=== PATIENT | female | born 1960 | race Caucasian/White ===

== ENCOUNTER → 2017-01-18 | Outpatient (CLI) | payer BC ==
--- NOTE | 2017-01-18 13:53 | BD ---
EXAMINATION TYPE: MG DEXA axial skeleton. DATE OF EXAM: 01/18/2017 CLINICAL HISTORY: Osteopenia. Follow-up exam. COMPARISON: 12/11/2013 Height: 54.5 Weight: 152 FRAX RISK QUESTIONS: Alcohol (3 or more units per day): no Family History (Parent hip fracture): yes, father Glucocorticoids (More than 3mos): no (Ex: prednisone, prednisolone, methylprednisolone, dexamethasone, and hydrocortisone). History of Fracture in Adulthood: yes, about 4 years ago area where wrist joins thumb; & finger at an other time Secondary Osteoporosis: 1. Type 1 Diabetes: no 2. Hyperthyroidism: no 3. Menopause before 45: no 4. Malnutrition: no 5. Chronic liver disease: no Rheumatoid Arthritis: no Current Tobacco Use: no RISK FACTORS HISTORY OF: Hip Fracture (Right/Left): no Spine Fracture: no History of Wrist Fracture: no Surgery to Spine/Hip(right/left)/Wrist (right/left): no Family History of Osteoporosis: yes, sister Active: no Diet low in dairy products/other sources of calcium: no Postmenopausal woman: yes Take estrogen and/or progesterone medications: no Lost more than 2 inches in height since high school: no Frequent falls: no Poor Health: no Hyperparathyroidism: no Adrenal Insufficiency: no MEDICATIONS: Prednisone or other steroids: no Thyroid Medications: no Osteoporosis Medications: no Additional Medications: n/a Additional History: osteoarthritis knees EXAM MEASUREMENTS: Bone mineral densitometry was performed using the [employer]ablo System. Bone mineral density as measured about the Lumbar spine is: ----- L1-L4(G/cm2): 1.227 T Score Values are as follows: ----- L2: 0.7 ----- L3: 0.7 ----- L4: 0.3 ----- L1-L4: 0.4 Bone mineral density has: Increased 1.0% since study of: 12/11/2013 Bone mineral density about the R hip (g/cm2): 0.809 Bone mineral density about the L hip (g/cm2): 0.887 T Score values are as follows: -----R Neck: -1.6 -----L Neck: -1.1 -----R Total: -1.3 -----L Total: -0.7 Bone mineral density has: Decreased -3.4% since study of: 12/11/2013 IMPRESSION: Osteopenia (T Score between -2.5 and -1 as noted by T score values) both hips. There is slightly increased risk of fracture and the patient may be considered for treatment. Re-Screen 2-5 years. NOTE: T-SCORE=SD OF THE YOUNG ADULT MEAN.
--- NOTE | 2017-01-22 10:43 | MM ---
Reason for exam: screening (asymptomatic). Last mammogram was performed 1 year and 2 months ago. History: Patient is postmenopausal. Family history of premenopausal breast cancer in sister at age 33, premenopausal breast cancer in mother at age 48, and breast cancer in relative. Physical Findings: A clinical breast exam by your physician is recommended on an annual basis and results should be correlated with mammographic findings. MG Screening Mammo w CAD Bilateral CC and MLO view(s) were taken. Prior study comparison: November 30, 2015, bilateral MG screening mammo w CAD. November 06, 2014, bilateral MG screening mammo w CAD. The breast tissue is heterogeneously dense. This may lower the sensitivity of mammography. No significant changes when compared with prior studies. ASSESSMENT: Benign, BI-RAD 2 RECOMMENDATION: Routine screening mammogram of both breasts in 1 year.
== END | disposition home or self-care (01) ==
LOC: RADMAMWWP 10:27
PROVIDERS: ATTEND Obstetrics & Gynecology
DX: Z12.31 Encounter for screening mammogram for malignant neoplasm of breast (principal); M85.851 Other specified disorders of bone density and structure, right thigh; M85.852 Other specified disorders of bone density and structure, left thigh
CPT/HCPCS: 77080; G0202

== ENCOUNTER → 2018-03-27 | Outpatient (CLI) | payer BC ==
--- NOTE | 2018-03-27 14:41 | MM ---
Reason for exam: screening (asymptomatic). Last mammogram was performed 1 year and 2 months ago. History: Patient is postmenopausal. Family history of premenopausal breast cancer in sister at age 33, premenopausal breast cancer in mother at age 48, and breast cancer in relative. Physical Findings: A clinical breast exam by your physician is recommended on an annual basis and results should be correlated with mammographic findings. MG 3D Screening Mammo W/Cad Bilateral CC and MLO view(s) were taken. Prior study comparison: January 18, 2017, bilateral MG screening mammo w CAD. November 30, 2015, bilateral MG screening mammo w CAD. The breast tissue is heterogeneously dense. This may lower the sensitivity of mammography. No suspicious abnormality in the right breast. Focal asymmetry left upper outer quadrant middle posterior depth. ASSESSMENT: Incomplete: need additional imaging evaluation, BI-RAD 0 RECOMMENDATION: Special view mammogram of the left breast. If lesion persists on supplemental views, image directed ultrasound is recommended. [facility] will attempt to contact patient to return for supplemental views and ultrasound if indicated.
== END | disposition home or self-care (01) ==
LOC: RADMAMWWP 11:33
PROVIDERS: ATTEND Obstetrics & Gynecology
DX: Z12.31 Encounter for screening mammogram for malignant neoplasm of breast (principal); Z80.3 Family history of malignant neoplasm of breast
CPT/HCPCS: 77063; 77067

== ENCOUNTER → 2018-03-29 | Outpatient (CLI) | payer BC ==
--- NOTE | 2018-04-01 07:58 | MM ---
Reason for exam: additional evaluation requested from abnormal screening. Last mammogram was performed less than 1 month ago. History: Patient is postmenopausal. Family history of premenopausal breast cancer in sister at age 33, premenopausal breast cancer in mother at age 48, and breast cancer in relative. Physical Findings: Nurse did not find any significant physical abnormalities on exam. MG 3D Work Up W/Cad LT Spot compression CC, spot compression MLO, and ML view(s) were taken of the left breast. Prior study comparison: March 27, 2018, bilateral MG 3d screening mammo w/cad. January 18, 2017, bilateral MG screening mammo w CAD. There are scattered fibroglandular densities. Focal asymmetry disperses on compression. This finding is changed when compared with previous exams. These results were verbally communicated with the patient and result sheet given to the patient on 03/29/18. ASSESSMENT: Probably benign, BI-RAD 3 RECOMMENDATION: Follow-up diagnostic mammogram of the left breast in 6 months. (with CC/MLO compression)
== END | disposition home or self-care (01) ==
LOC: RADMAMWWP 10:41
PROVIDERS: ATTEND Obstetrics & Gynecology
DX: R92.8 Other abnormal and inconclusive findings on diagnostic imaging of breast (principal)
CPT/HCPCS: 77061; 77065

== ENCOUNTER → 2018-09-30 | Outpatient (CLI) | payer BC ==
--- NOTE | 2018-09-30 10:05 | MM ---
Reason for exam: follow-up at short interval from prior study. Last mammogram was performed 6 months ago. History: Patient is postmenopausal. Family history of premenopausal breast cancer in sister at age 33, premenopausal breast cancer in mother at age 48, and breast cancer in relative. Physical Findings: Nurse did not find any significant physical abnormalities on exam. MG 3D Diag Mammo W/Cad LT CC and MLO view(s) were taken of the left breast. Prior study comparison: March 29, 2018, left breast MG 3d work up w/cad LT. March 27, 2018, bilateral MG 3d screening mammo w/cad. There are scattered fibroglandular densities. Questioned lateral asymmetric density does not persist. No significant new findings when compared with previous films. These results were verbally communicated with the patient and result sheet given to the patient on 09/30/18. ASSESSMENT: Negative, BI-RAD 1 RECOMMENDATION: Return to routine screening mammogram schedule for both breasts. Back on schedule.
== END | disposition home or self-care (01) ==
LOC: RADMAMWWP 08:23
PROVIDERS: ATTEND Obstetrics & Gynecology
DX: R92.8 Other abnormal and inconclusive findings on diagnostic imaging of breast (principal)
CPT/HCPCS: 77061; 77065

== ENCOUNTER → 2019-04-04 | Outpatient (CLI) | payer BC ==
--- NOTE | 2019-04-07 13:48 | MM ---
Reason for exam: screening (asymptomatic). Last mammogram was performed 6 months ago. History: Patient is postmenopausal. Family history of premenopausal breast cancer in sister at age 33, premenopausal breast cancer in mother at age 48, and breast cancer in relative. Physical Findings: A clinical breast exam by your physician is recommended on an annual basis and results should be correlated with mammographic findings. MG 3D Screening Mammo W/Cad Bilateral CC and MLO view(s) were taken. Prior study comparison: September 30, 2018, left breast MG 3d diag mammo w/cad LT. March 29, 2018, left breast MG 3d work up w/cad LT. There are scattered fibroglandular densities. Focal asymmetry left upper outer quadrant. This finding is changed when compared with previous exams. ASSESSMENT: Incomplete: need additional imaging evaluation, BI-RAD 0 RECOMMENDATION: Special view mammogram of the left breast. If lesion persists on supplemental views, image directed ultrasound is recommended. [facility] will attempt to contact patient to return for supplemental views and ultrasound if indicated.
== END | disposition home or self-care (01) ==
LOC: RADMAMWWP 07:19
PROVIDERS: ATTEND Obstetrics & Gynecology
DX: Z12.31 Encounter for screening mammogram for malignant neoplasm of breast (principal)
CPT/HCPCS: 77063; 77067

== ENCOUNTER → 2019-04-14 | Outpatient (CLI) | payer BC ==
--- NOTE | 2019-04-15 07:39 | MM ---
Reason for exam: additional evaluation requested from abnormal screening. Last mammogram was performed less than 1 month ago. History: Patient is postmenopausal. Family history of premenopausal breast cancer in sister at age 33, premenopausal breast cancer in mother at age 48, and breast cancer in relative. Physical Findings: Nurse did not find any significant physical abnormalities on exam. MG 3D Work Up W/Cad LT Spot compression CC, spot compression MLO, and LM view(s) were taken of the left breast. Prior study comparison: April 04, 2019, bilateral MG 3d screening mammo w/cad. September 30, 2018, left breast MG 3d diag mammo w/cad LT. The breast tissue is heterogeneously dense. This may lower the sensitivity of mammography. No significant new findings when compared with previous films. These results were verbally communicated with the patient and result sheet given to the patient on 04/14/19. ASSESSMENT: Probably benign, BI-RAD 3 RECOMMENDATION: Follow-up diagnostic mammogram of the left breast in 6 months.
== END | disposition home or self-care (01) ==
LOC: RADMAMWWP 14:52
PROVIDERS: ATTEND Obstetrics & Gynecology
DX: R92.8 Other abnormal and inconclusive findings on diagnostic imaging of breast (principal)
CPT/HCPCS: 77061; 77065

== ENCOUNTER → 2020-04-13 | Outpatient (CLI) | payer BC ==
--- NOTE | 2020-04-13 15:08 | MM ---
Reason for exam: additional evaluation requested from prior study. Last mammogram was performed 1 year ago. History: Patient is postmenopausal. Family history of premenopausal breast cancer in sister at age 33, premenopausal breast cancer in mother at age 48, and breast cancer in relative. Physical Findings: Nurse did not find any significant physical abnormalities on exam. MG 3D Diag Mammo W/Cad ELYSSA Bilateral CC and MLO view(s) were taken. Prior study comparison: April 14, 2019, left breast MG 3d work up w/cad LT. April 04, 2019, bilateral MG 3d screening mammo w/cad. The breast tissue is heterogeneously dense. This may lower the sensitivity of mammography. There is no discrete abnormality. These results were verbally communicated with the patient and result sheet given to the patient on 04/13/20. ASSESSMENT: Negative, BI-RAD 1 RECOMMENDATION: Routine screening mammogram of both breasts in 1 year.
== END | disposition home or self-care (01) ==
LOC: RADMAMWWP 14:10
PROVIDERS: ATTEND Obstetrics & Gynecology
DX: R92.8 Other abnormal and inconclusive findings on diagnostic imaging of breast (principal)
CPT/HCPCS: 77062; 77066

== ENCOUNTER → 2020-04-28 | Outpatient (CLI) | payer BC ==
--- NOTE | 2020-04-29 07:20 | US ---
Limited abdomen ultrasound HISTORY: R 19.00 Ultrasound performed at the level of the palpable abnormality in the epigastric region. Isoechoic to mildly echogenic focus is present measuring approximately 1.2 cm is present. IMPRESSION: Findings may represent a lipoma or fibroma. Follow-up clinically. Limited exam.
== END | disposition home or self-care (01) ==
LOC: RADUSWWP 16:06
PROVIDERS: ATTEND Family Medicine
DX: R22.2 Localized swelling, mass and lump, trunk (principal)
CPT/HCPCS: 76705

== ENCOUNTER → 2022-06-20 | Outpatient (CLI) | payer BC ==
--- NOTE | 2022-06-20 09:00 | MM ---
Reason for Exam: Screening (asymptomatic). Last mammogram was performed 2 year(s) and 3 month(s) ago. Patient History: Menarche at age 11. First Full-Term at age 22. Postmenopausal. Maternal uncle had breast cancer. Sister had breast cancer, age 33. Mother had breast cancer, age 48. Risk Values: Laura 5 year model risk: 6.6%. NCI Lifetime model risk: 28.1%. Prior Study Comparison: 01/18/2017 Bilateral Screening Mammogram, [facility]. 03/27/2018 Bilateral Screening Mammogram, [facility]. 03/29/2018 Left Diagnostic Mammogram, [facility]. 09/30/2018 Left Diagnostic Mammogram, [facility]. 04/04/2019 Bilateral Screening Mammogram, [facility]. 04/14/2019 Left Diagnostic Mammogram, [facility]. 04/13/2020 Bilateral Diagnostic Mammogram, [facility]. Tissue Density: There are scattered fibroglandular densities. Findings: Analyzed By CAD. There is no suspicious group of microcalcifications or new suspicious mass in either breast. Overall Assessment: Negative, BI-RAD 1 Management: Screening Mammogram of both breasts in 1 year. A clinical breast exam by your physician is recommended on an annual basis and results should be correlated with mammographic findings. [facility] will attempt to contact patient to return for supplemental views and ultrasound if indicated. Electronically signed and approved by: Ra Power DO
== END | disposition home or self-care (01) ==
LOC: RADMAMWWP 06:51
PROVIDERS: ATTEND Family Medicine
DX: Z12.31 Encounter for screening mammogram for malignant neoplasm of breast (principal); Z78.0 Asymptomatic menopausal state; Z80.3 Family history of malignant neoplasm of breast
CPT/HCPCS: 77063; 77067

== ENCOUNTER 2022-07-17 06:42 | Day surgery (SDC) | payer BC ==
[2022-07-12 14:19] VITALS: BMI 24.2
[2022-07-17] MEDS ORDERED: LIDOCAINE 1% (10MG/ML) FOR IV START INTRADERMA PRN (06:54)
[2022-07-17] MEDS ORDERED: LACTATED RINGERS 1,000 ML IV SCH (06:54)
[2022-07-17 07:15] VITALS: TEMP 97.7
--- NOTE | 2022-07-17 07:16 | P.GSHP ---
History of Present Illness H&P Date: 07/17/22 CHIEF COMPLAINT: Colon screen HISTORY OF PRESENT ILLNESS: The patient is a 62-year-old female who presents for colon screen. Lower endoscopy was offered for further evaluation and management. PAST MEDICAL HISTORY: Please see list. PAST SURGICAL HISTORY: Please see list. MEDICATIONS: Please see list. ALLERGIES: Please see list. SOCIAL HISTORY: No illicit drug use FAMILY HISTORY: No reports of Crohn disease or ulcerative colitis. REVIEW OF ORGAN SYSTEMS: CONSTITUTIONAL: No reports of fevers or chills. PHYSICAL EXAM: VITAL SIGNS: Stable GENERAL: Well-developed pleasant in no acute distress. HEENT: No scleral icterus. Extraocular movements grossly intact. Moist buccal mucosa. NECK: Supple without lymphadenopathy. CHEST: Unlabored respirations. Equal bilateral excursions. CARDIOVASCULAR: Regular rate and rhythm. Distal 2+ pulses. ABDOMEN: Soft, nontender, nondistended. MUSCULOSKELETAL: No clubbing, cyanosis, or edema. ASSESSMENT: 1. Colon screen. PLAN: 1. Recommend proceeding with a lower endoscopy Past Medical History Past Medical History: No Reported History History of Any Multi-Drug Resistant Organisms: None Reported Past Surgical History: Orthopedic Surgery, Tonsillectomy, Uterine Ablation Additional Past Surgical History / Comment(s): Bilateral knee arthroscopy, sinus surgery, D&C. COLONOSCOPY Past Anesthesia/Blood Transfusion Reactions: Postoperative Nausea & Vomiting (PONV) Smoking Status: Former smoker - Past Family History Mother Family Medical History: Cancer Additional Family Medical History / Comment(s): Brain Hemorrage. Father Family Medical History: Cancer Sister(s) Family Medical History: Cancer Medications and Allergies Home Medications Medication Instructions Recorded Confirmed Type No Known Home Medications 06/05/17 07/17/22 History Allergies Allergy/AdvReac Type Severity Reaction Status Date / Time No Known Allergies Allergy Verified 07/17/22 06:59
[2022-07-17] MEDS ORDERED: LACTATED RINGERS 1,000 ML IV ONE (07:24)
[2022-07-17] MEDS ORDERED: PROPOFOL 10 MG/ML 20 ML VIAL IV ONE (07:26)
[2022-07-17 07:57] VITALS: RESP 16
[2022-07-17 08:08] VITALS: BP 123/72; PULSE 60
--- NOTE | 2022-07-17 08:13 | P.PCN ---
Date of Procedure: 07/17/22 Description of Procedure: PREOPERATIVE DIAGNOSIS: Personal history of colon polyps Family history malignant colon polyps Colonoscopy screening POSTOPERATIVE DIAGNOSIS: Tubular adenoma sigmoid colon Sigmoid diverticulosis Internal hemorrhoids, grade 2 OPERATION: Colonoscopy to the ileocecal valve and appendiceal orifice, cecum Colonoscopy with cold forceps biopsy SURGEON: Shruthi Gibbs MD. ANESTHESIA: MAC. INDICATIONS: The patient is an 62-year-old male who presents family history of malignant colon polyps and personal history of colon polyps. Last colonoscopy 5 years. Benefits and risks were described and informed consent was obtained. DESCRIPTION OF PROCEDURE: The patient had undergone Sutab prep. The patient had been brought into the operating room and laid in the left lateral decubitus position. After adequate intravenous sedation, the rectum was examined with 2% lidocaine jelly. No external hemorrhoids were encountered. The rectal tone was within normal limits. No lesions were palpated in the rectal vault. An Olympus colonoscope was advanced until the cecum, ileocecal valve and appendiceal orifice were clearly viewed. The prep was excellent. Sigmoid diverticulosis was encountered. Colonic polyps were found and removed. No evidence of focal colitis was found. Retroflexion of the scope demonstrated grade 2 internal hemorrhoids without active bleeding or inflammation. The colon was desufflated. The patient had tolerated the procedure well. Withdrawal time was over 6 minutes. FINDINGS: Aronchick preparation quality scale 1 (1-5) Internal hemorrhoids, grade 2 No external hemorrhoids No arteriovenous malformations. Sigmoid diverticulosis - Cold forceps biopsy at 20 cm from the anal verge, 4 mm polyp, sigmoid colon No focal colitis. RECOMMENDATIONS: Repeat colonoscopy 5 years, 2027 Plan - Discharge Summary Discharge Rx Participant: No New Discharge Prescriptions: No Action No Known Home Medications Discharge Medication List No Known Home Medications 06/05/17 [History]
== END 2022-07-17 09:18 | disposition home or self-care (01) ==
LOC: ORWHC2ENDO 06:42
PROVIDERS: ATTEND Surgery Plastic and Reconstructive Surgery
DX: Z12.11 Encounter for screening for malignant neoplasm of colon (principal); K63.5 Polyp of colon; K57.30 Diverticulosis of large intestine without perforation or abscess without bleeding; K64.1 Second degree hemorrhoids; Z83.71 Family history of colonic polyps; Z98.890 Other specified postprocedural states; Z87.891 Personal history of nicotine dependence; Z86.69 Personal history of other diseases of the nervous system and sense organs; Z86.16 Personal history of COVID-19
CPT/HCPCS: 88305; 45380; J2704

== ENCOUNTER → 2023-05-14 | Outpatient (CLI) | payer BC ==
--- NOTE | 2023-05-14 12:48 | XR ---
EXAMINATION TYPE: XR chest 2V DATE OF EXAM: 05/14/2023 COMPARISON: NONE HISTORY: COVID. TECHNIQUE: Frontal and lateral views of the chest are obtained. FINDINGS: There is no focal air space opacity, pleural effusion, or pneumothorax seen. The cardiac silhouette size is within normal limits. The osseous structures are intact. IMPRESSION: No acute pulmonary infiltrate.
== END | disposition home or self-care (01) ==
LOC: RADXRMAIN 12:12
PROVIDERS: ATTEND Family Medicine
DX: U07.1 COVID-19 (principal); R09.89 Other specified symptoms and signs involving the circulatory and respiratory systems
CPT/HCPCS: 71046

== ENCOUNTER → 2023-07-23 | Outpatient (CLI) | payer BC ==
--- NOTE | 2023-07-24 10:24 | MM ---
Reason for Exam: Screening (asymptomatic). Last mammogram was performed 1 year(s) and 1 month(s) ago. Patient History: Menarche at age 11. First Full-Term at age 22. Postmenopausal. Maternal uncle had breast cancer. Sister had breast cancer, age 33. Mother had breast cancer, age 48. Risk Values: Laura 5 year model risk: 7.0%. NCI Lifetime model risk: 26.6%. Prior Study Comparison: 04/14/2019 Left Diagnostic Mammogram, [facility]. 04/13/2020 Bilateral Diagnostic Mammogram, [facility]. 06/20/2022 Bilateral MG 3D screening mammo w/cad, [facility]. Tissue Density: The breast tissue is heterogeneously dense. This may lower the sensitivity of mammography. Findings: Analyzed By CAD. Asymmetric nodular density seen in the left CC view 10 cm from the nipple outer portion of the left breast. Additional views are recommended. No right-sided nodules or masses. No suspicious calcifications within either breast. Overall Assessment: Incomplete: need additional imaging evaluation, BI-RAD 0 Management: Diagnostic Mammogram of the left breast. . Patient should continue monthly self-breast exams. A clinical breast exam by your physician is recommended on an annual basis. This exam should not preclude additional follow-up of suspicious palpable abnormalities. Note on Laura scores and lifetime risk: 1. A Laura score greater than 3% is considered moderate risk. If this is the case, consider specialist referral to assess eligibility for a risk reducing agent. 2. If overall lifetime risk for the development of breast cancer is 20% or higher, the patient may qualify for future screening with alternating mammogram and breast MRI. Electronically signed and approved by: Raudel Vila M.D. Radiologis
== END | disposition home or self-care (01) ==
LOC: RADMAMWWP 07:01
PROVIDERS: ATTEND Family Medicine
DX: Z12.31 Encounter for screening mammogram for malignant neoplasm of breast (principal); Z78.0 Asymptomatic menopausal state; Z80.3 Family history of malignant neoplasm of breast
CPT/HCPCS: 77063; 77067

== ENCOUNTER → 2023-07-30 | Outpatient (CLI) | payer BC ==
--- NOTE | 2023-07-30 14:21 | MM ---
Reason for Exam: Additional evaluation requested from abnormal screening. Last screening mammogram was performed less than 1 month ago. Patient History: Menarche at age 11. First Full-Term at age 22. Postmenopausal. Maternal uncle had breast cancer. Sister had breast cancer, age 33. Mother had breast cancer, age 48. Risk Values: Mana 5 year model risk: 7.0%. NCI Lifetime model risk: 26.6%. Prior Study Comparison: 04/13/2020 Bilateral Diagnostic Mammogram, [facility]. 06/20/2022 Bilateral MG 3D screening mammo w/cad, [facility]. 07/23/2023 Bilateral MG 3D screening mammo w/cad, [facility]. Tissue Density: Left: There are scattered fibroglandular densities. Findings: Analyzed By CAD. The questioned area of asymmetric density posterior outer aspect left view does not persist on additional views. Findings compatible with superimposition shadow. Overall Assessment: Benign, BI-RAD 2 Management: Screening Mammogram of both breasts in 1 year. SEE NOTE BELOW IN REGARDS TO PATIENT'S INCREASED 5 YEAR MANA SCORE AND INCREASED LIFETIME RISK SCORE. Results were given to the patient verbally at the time of exam. Patient should continue monthly self-breast exams. A clinical breast exam by your physician is recommended on an annual basis. This exam should not preclude additional follow-up of suspicious palpable abnormalities. Note on Mana scores and lifetime risk: 1. A Mana score greater than 3% is considered moderate risk. If this is the case, consider specialist referral to assess eligibility for a risk reducing agent. 2. If overall lifetime risk for the development of breast cancer is 20% or higher, the patient may qualify for future screening with alternating mammogram and breast MRI. Electronically signed and approved by: Peewee Jerez M.D. Radiologist
== END | disposition home or self-care (01) ==
LOC: RADMAMWWP 14:01
PROVIDERS: ATTEND Family Medicine
DX: R92.322 Mammographic fibroglandular density, left breast (principal); Z80.3 Family history of malignant neoplasm of breast; Z78.0 Asymptomatic menopausal state
CPT/HCPCS: 77061; 77065

== ENCOUNTER → 2024-09-12 | Outpatient (CLI) | payer BC ==
--- NOTE | 2024-09-12 08:10 | MM ---
Reason for Exam: Screening (asymptomatic). Last mammogram was performed 1 year(s) and 1 month(s) ago. Patient History: Menarche at age 11. First Full-Term at age 22. Postmenopausal. Maternal uncle had breast cancer, age 70. Sister had breast cancer, age 33. Mother had breast cancer, age 48. Sister tested for BRCA2 outcome was positive. Mother tested for BRCA2 outcome was positive. Risk Values: Laura 5 year model risk: 7.2%. NCI Lifetime model risk: 25.9%. Prior Study Comparison: 06/20/2022 Bilateral MG 3D screening mammo w/cad, [facility]. 07/23/2023 Bilateral MG 3D screening mammo w/cad, [facility]. 07/30/2023 Left MG 3D work up w/cad , [facility]. Tissue Density: The breasts are heterogeneously dense, which may obscure small masses. Findings: Analyzed By CAD. There is no suspicious group of microcalcifications or new suspicious mass in either breast. Overall Assessment: Benign, BI-RAD 2 Management: Screening Mammogram of both breasts in 1 year. . Patient should continue monthly self-breast exams. A clinical breast exam by your physician is recommended on an annual basis. This exam should not preclude additional follow-up of suspicious palpable abnormalities. Note on Laura scores and lifetime risk: 1. A Laura score greater than 3% is considered moderate risk. If this is the case, consider specialist referral to assess eligibility for a risk reducing agent. 2. If overall lifetime risk for the development of breast cancer is 20% or higher, the patient may qualify for future screening with alternating mammogram and breast MRI. [facility], , 09/12/2024 8:08 AM. Electronically signed and approved by: Edson Barros M.D. Radiologis
== END | disposition home or self-care (01) ==
LOC: RADMAMWWP 07:26
PROVIDERS: ATTEND Family Medicine
DX: Z12.31 Encounter for screening mammogram for malignant neoplasm of breast (principal); R92.333 Mammographic heterogeneous density, bilateral breasts; Z78.0 Asymptomatic menopausal state; Z80.3 Family history of malignant neoplasm of breast
CPT/HCPCS: 77063; 77067